=== PATIENT | male | born 1940 | race Caucasian/White ===

== ENCOUNTER 2018-02-22 12:50 | Emergency (ER) | payer MEDICARE, OTHER ==
[2018-02-22] MEDS ORDERED: FENTANYL CITRATE INJ/PF 100 MCG/2 ML AMPUL IV ONE (13:41)
[2018-02-22] MEDS ORDERED: ONDANSETRON HCL INJ/PF 4 MG/2 ML SDV IV ONE (13:41)
--- NOTE | 2018-02-22 13:42 | ER Document Report ---
ED Medical Screen (RME) - General Chief Complaint: Possible Kidney Stone Stated Complaint: FLANK PAIN Time Seen by Provider: 02/22/18 13:33 Mode of Arrival: Ambulatory Information source: Patient Notes: 77-year-old male presents emergency department complaints of left flank pain been present for the last 3 days. Patient describes the pain as a constant dull aching sensation. He states that intermittently he will have a sharp and stabbing sensation. He does have a history of kidney stones. He states that he had to have lithotripsy done in the past. His last kidney stone was 8 years ago. Patient states that he has also had similar pain when he had a perforation of his colon. Having associated nausea. I have greeted and performed a rapid initial assessment of this patient. A comprehensive ED assessment and evaluation of the patient, analysis of test results and completion of the medical decision making process will be conducted by additional ED providers. PHYSICAL EXAMINATION: GENERAL: Well-appearing, well-nourished and in no acute distress. HEAD: Atraumatic, normocephalic. EYES: Pupils equal round extraocular movements intact, conjunctiva are normal. ENT: Nares patent NECK: Normal range of motion LUNGS: No respiratory distress Musculoskeletal: Normal range of motion NEUROLOGICAL: Normal speech, normal gait. PSYCH: Normal mood, normal affect. SKIN: Warm, Dry, normal turgor, no rashes or lesions noted. TRAVEL OUTSIDE OF THE [place] IN LAST 30 DAYS: No - Related Data Allergies/Adverse Reactions: amiodarone Adverse Reaction (Verified 02/22/18 12:51) Past Medical History - Social History Chew tobacco use (# tins/day): No Frequency of alcohol use: Occasional Drug Abuse: None Renal/ Medical History: Denies: Hx Peritoneal Dialysis Physical Exam - Vital signs Vitals: Temp Pulse Resp BP Pulse Ox 98.5 F 62 18 145/76 H 96 02/22/18 13:00 02/22/18 13:00 02/22/18 13:00 02/22/18 13:00 02/22/18 13:00 Course - Vital Signs Vital signs: Temp Pulse Resp BP Pulse Ox 98.5 F 62 16 145/76 H 96 02/22/18 13:00 02/22/18 13:00 02/22/18 13:32 02/22/18 13:00 02/22/18 13:00
[2018-02-22 15:03] LABS: ABSOLUTE LYMPHOCYTES (AUTO) 0.9 10^3/uL (0.5-4.7); ABSOLUTE MONOCYTES (AUTO) 0.5 10^3/uL (0.1-1.4); ABSOLUTE NEUT (AUTO) 3.2 10^3/uL (1.7-8.2); BASOPHILS % (AUTO) 0.9 % (0-2); EOSINOPHILS % (AUTO) 0.8 % (0-6); HEMATOCRIT 38.7 % (37.9-51.0); HEMOGLOBIN 13.5 g/dL (13.5-17.0); LYMPHOCYTES % (AUTO) 19.9 % (13-45); MEAN CORPUSCULAR HEMOGLOBIN 33.2 pg (27.0-33.4); MEAN CORPUSCULAR HGB CONC 34.9 g/dL (32.0-36.0); MEAN CORPUSCULAR VOLUME 95 fl (80-97); PLATELET COUNT 188 10^3/uL (150-450); RED BLOOD COUNT 4.07 10^6/uL (4.35-5.55); RED CELL DISTRIBUTION WIDTH 14.6 % (11.5-14.0); SEGMENTED NEUTROPHILS % (AUTO) 68.4 % (42-78); TOTAL CELLS COUNTED % (AUTO) 100 %; WHITE BLOOD COUNT 4.7 10^3/uL (4.0-10.5)
[2018-02-22 15:13] LABS: APPEARANCE,URINE SLIGHTLY-CLOUDY; BILIRUBIN,URINE NEGATIVE (NEGATIVE); COLOR,URINE YELLOW; GLUCOSE, URINE NEGATIVE (NEGATIVE); KETONES,URINE NEGATIVE (NEGATIVE); LEUKOCYTE ESTERASE,URINE NEGATIVE (NEGATIVE); NITRITE,URINE NEGATIVE (NEGATIVE); PROTEIN,URINE NEGATIVE (NEGATIVE); URINE SPECIFIC GRAVITY 1.025
[2018-02-22 16:38] LABS: ALANINE AMINOTRANSFERASE 24 U/L (21-72); ALBUMIN 4.5 g/dL (3.5-5.0); ALKALINE PHOSPHATASE 57 U/L (38-126); ANION GAP 14 (5-19); ASPARTATE AMINO TRANSFERASE 24 U/L (17-59); BILIRUBIN,DIRECT 0.2 mg/dL (0.0-0.4); BILIRUBIN,TOTAL 0.5 mg/dL (0.2-1.3); BLOOD UREA NITROGEN 19 mg/dL (7-20); CALCIUM 9.3 mg/dL (8.4-10.2); CARBON DIOXIDE 26 mmol/L (22-30); CHLORIDE 104 mmol/L (98-107); GLUCOSE 102 mg/dL (75-110); POTASSIUM 3.7 mmol/L (3.6-5.0); SODIUM 144.1 mmol/L (137-145); TOTAL PROTEIN 7.4 g/dL (6.3-8.2)
[2018-02-22 17:06] VITALS: BP 157/86
--- NOTE | 2018-02-22 17:09 | RADIOLOGY REPORT (SQ) ---
EXAM DESCRIPTION: CT ABD/PELVIS WITH IV ONLY COMPLETED DATE/TIME: 02/22/2018 4:57 pm REASON FOR STUDY: L flank pain COMPARISON: None. TECHNIQUE: CT scan of the abdomen and pelvis performed using helical scanning technique with dynamic intravenous contrast injection. No oral contrast. Images reviewed with lung, soft tissue, and bone windows. Reconstructed coronal and sagittal MPR images reviewed. Delayed images for evaluation of the urinary system also acquired. All images stored on PACS. All CT scanners at this facility use dose modulation, iterative reconstruction, and/or weight based d osing when appropriate to reduce radiation dose to as low as reasonably achievable (ALARA). [facility]: Dose Right [facility]: CareDose [facility]: Dose Right [facility]: Teradose 4D [facility]: [employer] CONTRAST TYPE AND DOSE: contrast/concentration: Isovue 350.00 mg/ml; Total Contrast Delivered: 100.0 ml; Total Saline Delivered: 72.0 ml RENAL FUNCTION: BUN 19 creatinine 1.12. RADIATION DOSE: CT Rad equipment meets quality standard of care and radiation dose reduction techniq ues were employed. CTDIvol: 17.7 - 19.7 mGy. DLP: 2074 mGy-cm.. LIMITATIONS: None. FINDINGS: LOWER CHEST: No significant findings. No nodules or infiltrates. LIVER: Normal size. No masses. No dilated ducts. SPLEEN: Normal size. No focal lesions. PANCREAS: No masses. No significant calcifications. No adjacent inflammation or peripancreatic fluid collections. Pancreatic duct not dilated. GALLBLADDER: No identified stones by CT criteria. No inflammatory changes to suggest cholecystitis. ADRENAL GLANDS: No significant masses or asymmetry. RIGHT KIDNEY AND URETER: No solid masses. No significant calcifications. No hydronephrosis or hyd roureter. LEFT KIDNEY AND URETER: No solid masses. No significant calcifications. No hydronephrosis or hydr oureter. AORTA AND VESSELS: No aneurysm. No dissection. Renal arteries, SMA, celiac without stenosis. RETROPERITONEUM: No retroperitoneal adenopathy, hemorrhage or masses. BOWEL AND PERITONEAL CAVITY: Large hiatal hernia. Fairly extensive colonic diverticulosis. No taniya s or inflammatory changes. No free fluid or peritoneal masses. APPENDIX: Normal. PELVIS: No mass. No free fluid. Normal bladder. ABDOMINAL WALL: No masses. No hernias. BONES: No significant or acute findings. OTHER: No other significant finding. IMPRESSION: 1. FAIRLY EXTENSIVE COLONIC DIVERTICULOSIS. NO CT FINDINGS OF DIVERTICULITIS. 2. LARGE HIATAL HERNIA. 3. NO OTHER SIGNIFICANT OR ACUTE FINDING IN THE ABDOMEN OR PELVIS ON CT SCAN WITH IV CONTRAST. TECHNICAL DOCUMENTATION: JOB ID: [id number] Quality ID # [id number]: Final reports with documentation of one or more dose reduction techniques (e.g., Au tomated exposure control, adjustment of the mA and/or kV according to patient size, use of iterative reconstruction technique) 2010 [employer]- All Rights Reserved Reading location - IP/workstation name: [email or web address]
--- NOTE | 2018-02-22 17:57 | ER Document Report ---
ED General - General Chief Complaint: Possible Kidney Stone Stated Complaint: FLANK PAIN Time Seen by Provider: 02/22/18 13:33 Mode of Arrival: Ambulatory TRAVEL OUTSIDE OF THE [place] IN LAST 30 DAYS: No - HPI Patient complains to provider of: Flank pain possible kidney stone Notes: Patient coming in for the above-stated symptoms. Patient was seen in the triage area by her provider whose note is below 77-year-old male presents emergency department complaints of left flank pain been present for the last 3 days. Patient describes the pain as a constant dull aching sensation. He states that intermittently he will have a sharp and stabbing sensation. He does have a history of kidney stones. He states that he had to have lithotripsy done in the past. His last kidney stone was 8 years ago. Patient states that he has also had similar pain when he had a perforation of his colon. Having associated nausea. Patient upon my evaluation is resting comfortably. Patient denies any fever chills states slight nausea no vomiting otherwise feeling much better after receiving treatments patient denies any recent antibiotics or recent travel. - Related Data Allergies/Adverse Reactions: amiodarone Adverse Reaction (Verified 02/22/18 12:51) Past Medical History - General Information source: Patient - Social History Smoking Status: Never Smoker Chew tobacco use (# tins/day): No Frequency of alcohol use: Occasional Drug Abuse: None Family History: Reviewed & Not Pertinent Patient has suicidal ideation: No Patient has homicidal ideation: No Renal/ Medical History: Denies: Hx Peritoneal Dialysis Review of Systems - Review of Systems Constitutional: No symptoms reported EENT: No symptoms reported Cardiovascular: No symptoms reported Respiratory: No symptoms reported Gastrointestinal: Abdominal pain Genitourinary: No symptoms reported Male Genitourinary: No symptoms reported Musculoskeletal: No symptoms reported Skin: No symptoms reported Hematologic/Lymphatic: No symptoms reported Neurological/Psychological: No symptoms reported -: Yes All other systems reviewed and negative Physical Exam - Vital signs Vitals: Temp Pulse Resp BP Pulse Ox 98.5 F 62 18 145/76 H 96 02/22/18 13:00 02/22/18 13:00 02/22/18 13:00 02/22/18 13:00 02/22/18 13:00 Interpretation: Normal - General General appearance: Appears well, Alert - HEENT Head: Normocephalic, Atraumatic Eyes: Normal Pupils: PERRL - Respiratory Respiratory status: No respiratory distress Chest status: Nontender Breath sounds: Normal Chest palpation: Normal - Cardiovascular Rhythm: Regular Heart sounds: Normal auscultation Murmur: No - Abdominal Inspection: Normal Distension: No distension Bowel sounds: Normal Tenderness: Nontender Organomegaly: No organomegaly - Back Back: Normal, Nontender - Extremities General upper extremity: Normal inspection, Nontender, Normal color, Normal ROM , Normal temperature General lower extremity: Normal inspection, Nontender, Normal color, Normal ROM , Normal temperature, Normal weight bearing. No: Rex's sign - Neurological Neuro grossly intact: Yes Cognition: Normal Orientation: AAOx4 Mary Coma Scale Eye Opening: Spontaneous Mary Coma Scale Verbal: Oriented Mary Coma Scale Motor: Obeys Commands Mary Coma Scale Total: 15 Speech: Normal Motor strength normal: LUE, RUE, LLE, RLE Sensory: Normal - Psychological Associated symptoms: Normal affect, Normal mood - Skin Skin Temperature: Warm Skin Moisture: Dry Skin Color: Normal Course - Re-evaluation Re-evalutation: 02/22/18 23:47 The patient presents with flank pain without signs of peritonitis or other life- threatening or serious etiology. The patient appears stable for discharge and has been instructed to return immediately if the symptoms worsen in any way, or in 8-12hr if not improved for re-evaluation. The patient has been instructed to return if the symptoms worsen or change in any way. Unclear etiology for the patient's flank pain could be still ureteral spasm from my possibly earlier passed ston. Patient otherwise agrees with discharge home follow-up primary care physician. - Vital Signs Vital signs: Temp Pulse Resp BP Pulse Ox 97.6 F 61 16 157/86 H 97 02/22/18 17:04 02/22/18 17:04 02/22/18 17:04 02/22/18 17:04 02/22/18 17:04 - Laboratory Result Diagrams: 02/22/18 14:15 02/22/18 15:55 Laboratory results interpreted by me: 02/22/18 02/22/18 14:15 14:15 RBC 4.07 L RDW 14.6 H Urine Urobilinogen 2.0 H Urine Ascorbic Acid 20 H Discharge - Discharge Clinical Impression: Flank pain Condition: Good Disposition: HOME, SELF-CARE Instructions: Flank Pain ([facility]) Additional Instructions: At this time your laboratory studies CAT scan not show any signs of a kidney stone. No urinary tract infection no signs of infection any lab work. CAT scan does show signs of diffuse diverticulosis. At this time I would recommend Tylenol Motrin for pain control. Please make sure drinking plenty of fluids to stay well-hydrated. Your pain may have been due from passage of the kidney stone. If you develop a fever highly recommend returning to the ER is that this also may be an insidious onset of diverticulitis or inflammation of the pouch is on your colon. Follow-up with your primary care physician return to the ER symptoms worsen
== END 2018-02-22 17:55 | disposition home or self-care (01) ==
LOC: ER 12:50
DX: R10.9 Unspecified abdominal pain (principal); R11.0 Nausea
CPT/HCPCS: 99284; 96374; 96375; 36415; 85025; 80053; 81001; 74177; J3010; J2405

== ENCOUNTER 2018-03-21 16:19 | Emergency (ER) | payer OTHER ==
[2018-03-21 16:26] VITALS: BP 147/76
== END 2018-03-21 18:28 | disposition left against medical advice (07) ==
LOC: ER 16:19
DX: Z53.21 Procedure and treatment not carried out due to patient leaving prior to being seen by health care provider (principal); K62.5 Hemorrhage of anus and rectum

== ENCOUNTER 2018-06-06 09:55 | Day surgery (SDC) | payer OTHER ==
[~2018-06-06 09:55] MED LIST: PROPOFOL INJ 200 MG/20 ML VIAL IV ONE
[2018-06-06] MEDS ORDERED: SIMETHICONE 80 MG TAB.CHEW ONE (11:37)
[2018-06-06] MEDS ORDERED: SIMETHICONE 80 MG TAB.CHEW PO ONE (11:38)
--- NOTE | 2018-06-06 12:15 | Operative Report ---
Operative Report DATE OF SURGERY: 06/06/18 Operative Report: The risks, benefits and alternatives of the procedure including the risk of bleeding, perforation requiring surgery have been explained to the patient in detail and informed consent has been obtained. The patient is placed in a left, lateral decubital position. Timeout was called. Propofol medication is administered. Rectal examination is done which did not reveal any masses, tears or fissures. An Olympus videoscope was introduced into the patient's rectum. The scope was then carefully advanced all the way to the cecum. The cecum was identified by the usual anatomical landmarks including the ileocecal valve as well as the appendiceal office. Photodocumentation is obtained. Scope was then sequentially pulled back via the various segments of the colon including the ascending colon, hepatic flexure, transverse colon, splenic flexure, descending colon and finally into the rectosigmoid portions of the colon. Retroflexion maneuver was performed. The risks benefits and alternatives of the procedure explained to the patient in detail and informed consent is obtained.A GIF Olympus video scope was inserted into the patient's mouth and hypopharynx, the esophagus is identified intubated and insufflated ,the scope was then advanced through the esophagus stomach and duodenum, retroflexion maneuver is done, the esophagus stomach and first and second portions of the duodenum examined. PREOPERATIVE DIAGNOSIS: Iron deficiency anemia. Rectal bleeding although patient is on Xarelto POSTOPERATIVE DIAGNOSIS: Internal hemorrhoids. There is significant diverticulosis throughout the colon. No evidence of diverticulitis. No evidence of GI bleeding. Right side colon Inflammation status post biopsy. Paraesophageal hernia. Gastritis status post biopsy rule out Helicobacter pylori OPERATION: Colonoscopy with biopsy. EGD with biopsy SURGEON: SHAYY GAMINO ANESTHESIA: LMAC TISSUE REMOVED OR ALTERED: As noted above. COMPLICATIONS: None. ESTIMATED BLOOD LOSS: None. INTRAOPERATIVE FINDINGS: As noted above. PROCEDURE: Patient tolerated the procedure well. No immediate postprocedure complications are noted. Patient discharged in good condition. Discharge date 06/06/2018. Discharge diet: Regular. Discharge activity: Regular. 2-3-week follow-up to discuss findings. Patient is instructed call the office or proceed to the emergency room should there be any further proximal questions. I will wait on the pathology. No evidence of GI bleeding is noted.
[2018-06-06 12:32] VITALS: BP 186/90
== END 2018-06-06 12:35 | disposition home or self-care (01) ==
LOC: END 09:55
PROVIDERS: ATTEND Internal Medicine Gastroenterology
DX: D50.0 Iron deficiency anemia secondary to blood loss (chronic) (principal); K62.5 Hemorrhage of anus and rectum; K64.8 Other hemorrhoids; K57.30 Diverticulosis of large intestine without perforation or abscess without bleeding; K52.9 Noninfective gastroenteritis and colitis, unspecified; K44.9 Diaphragmatic hernia without obstruction or gangrene; K29.50 Unspecified chronic gastritis without bleeding
CPT/HCPCS: 43239; 45380; 88342 ×2; 88305 ×2; J2704

== ENCOUNTER 2018-07-18 17:08 | Emergency (ER) | payer OTHER, MEDICARE ==
--- NOTE | 2018-07-18 18:19 | RADIOLOGY REPORT (SQ) ---
EXAM DESCRIPTION: FOREARM RIGHT COMPLETED DATE/TIME: 07/18/2018 6:12 pm REASON FOR STUDY: Hit arm against trailer Wednesday. Bruised. Pain COMPARISON: None. NUMBER OF VIEWS: Two views. TECHNIQUE: Two radiographic images acquired of the right forearm, including elbow and wrist in at le ast one projection. LIMITATIONS: None. FINDINGS: MINERALIZATION: Normal. BONES: No acute fracture. No worrisome bone lesions. SOFT TISSUES: No obvious swelling or foreign body. OTHER: No other significant finding. IMPRESSION: NEGATIVE STUDY OF THE RIGHT FOREARM. NO RADIOGRAPHIC EVIDENCE OF ACUTE INJURY. TECHNICAL DOCUMENTATION: JOB ID: [id number] [employer]- All Rights Reserved Reading location - IP/workstation name: [email or web address]
--- NOTE | 2018-07-18 19:45 | ER Document Report ---
ED Extremity Problem, Upper - General Chief Complaint: Arm Problem Stated Complaint: POSSIBLE BLOOD CLOT Time Seen by Provider: 07/18/18 19:30 Primary Care Provider: CALEB NEVILLE [Primary Care Provider] - Follow up as needed Notes: Pleasant 77-year-old male presents to the the emergency department for chief complaint of blood clot in right forearm. He states he was picking up a trailer and a hitch landed on his arm about 4 days ago. He had bruising on the anterior part of his right forearm which is not concerned about the small amount which he thinks is an internal blood clot. He states it is been present for 4 days and is not changed size. He states it is painless. He denies any fever, chills, nausea, vomiting, shortness of breath or chest pain, abdominal pain TRAVEL OUTSIDE OF THE [place] IN LAST 30 DAYS: No - Related Data Allergies/Adverse Reactions: lisinopril Allergy (Verified 06/06/18 10:39) RASH amiodarone Adverse Reaction (Verified 06/06/18 10:39) ITCHY Past Medical History - Social History Smoking Status: Unknown if Ever Smoked Family History: Reviewed & Not Pertinent Patient has suicidal ideation: No Patient has homicidal ideation: No - Past Medical History Cardiac Medical History: Reports: Hx Atrial Fibrillation - ablasion, Hx Coronary Artery Disease, Hx Hypertension Denies: Hx Heart Attack Pulmonary Medical History: Denies: Hx Asthma, Hx Bronchitis, Hx COPD, Hx Pneumonia Neurological Medical History: Denies: Hx Cerebrovascular Accident, Hx Seizures Renal/ Medical History: Denies: Hx Peritoneal Dialysis Musculoskeletal Medical History: Denies Hx Arthritis Past Surgical History: Reports: Hx Cardiac Surgery - ablasion, Hx Orthopedic Surgery - R knee - Immunizations Hx Diphtheria, Pertussis, Tetanus Vaccination: Yes Physical Exam - Vital signs Vitals: Temp Pulse Resp BP Pulse Ox 98.7 F 64 16 153/78 H 97 07/18/18 17:43 07/18/18 17:43 07/18/18 17:43 07/18/18 17:43 07/18/18 17:43 - Notes Notes: PHYSICAL EXAMINATION: Reviewed vital signs and charting by RN GENERAL: Alert, interacts well. No acute distress. HEAD: Normocephalic, atraumatic. EYES: Pupils equal and round. Extraocular movements intact. LUNGS: Clear to auscultation bilaterally, no wheezes, rales, or rhonchi. No respiratory distress. HEART: Regular rate and rhythm. No murmur ABDOMEN: soft, non-tender. Non-distended. Bowel sounds present. no McBurney's point tenderness, no Kent sign. EXTREMITIES: Moves all 4 extremities spontaneously. No edema, No cyanosis. Normal distal neurovascular exam BACK: No CVAT NEUROLOGIC: Oriented and appropriate. Normal speech. PSYCH: Normal affect, normal mood. SKIN: Warm, dry, normal turgor. Ecchymosis right anterior forearm, small mobile mass in subcutaneous layer consistent with a lipoma Course - Re-evaluation Re-evalutation: 07/18/18 19:45 Overall well-appearing on anticoagulation. Patient is concerned he has a blood clot. I explained to him that the risk is very low in the location and he is also anticoagulated. Injury is most consistent with either a lipoma secondary to trauma or resorption of a hematoma. There is no pain out of proportion to movement of the forearm so I do not compartments were not tight. - Vital Signs Vital signs: Temp Pulse Resp BP Pulse Ox 98.7 F 64 16 153/78 H 97 07/18/18 17:43 07/18/18 17:43 07/18/18 17:43 07/18/18 17:43 07/18/18 17:43 Discharge - Discharge Clinical Impression: Bruising Condition: Good Disposition: HOME, SELF-CARE Additional Instructions: You are seen in the emergency department this afternoon for what is most likely resorption of a bruise. Because you are on anticoagulation you may have developed a small hematoma under the skin and the blood cells and pigment started to resorb into the connective tissue which could potentially cause a mass. Also, the other potential reason for this mass is what is called a lipoma. It is a benign tumor that is fatty in the subcutaneous layer of your skin. These can be caused by trauma. Both of these conditions are benign and should cause you no problems in the future. If you start to develop fever, redness around the site, red streaks running up your arm, severe pain out of proportion to movement Referrals: [facility] [Primary Care Provider] - Follow up as needed
[2018-07-18 20:13] VITALS: BP 145/85
== END 2018-07-18 20:13 | disposition home or self-care (01) ==
LOC: ER 17:08
DX: S50.11XA Contusion of right forearm, initial encounter (principal); W22.09XA Striking against other stationary object, initial encounter; I48.91 Unspecified atrial fibrillation; I25.10 Atherosclerotic heart disease of native coronary artery without angina pectoris; I10 Essential (primary) hypertension
CPT/HCPCS: 99283

== ENCOUNTER → 2019-04-24 | Outpatient (CLI) | payer OTHER ==
--- NOTE | 2019-04-24 13:17 | RADIOLOGY REPORT (SQ) ---
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 TECHNIQUE: Sagittal and Axial imaging includes T1, T2, STIR and gradient echo sequences. Coronal T2/ HASTE imaging. LIMITATIONS: None. FINDINGS: VISUALIZED UPPER ABDOMEN: Limited evaluation. No acute or suspicious findings suggested. SEGMENTATION: No transitional anatomy. The lowest well-developed disc space is labeled L5-S1. ALIGNMENT: There is mild anterolisthesis of L3 on L4. VERTEBRAE: Intact. BONE MARROW: Normal. No marrow replacement or reactive changes. DISC SIGNAL: Decreased T2 signal, particularly at L4-5 and L5-S1. There is narrowing of these disc s paces. POSTERIOR ELEMENTS: Generally intact. No pars defect evident. HARDWARE: None in the spine. CORD AND CONUS: Normal in size and signal intensity. Conus at the T12 level. SOFT TISSUES: No aortic aneurysm seen. No bulky retroperitoneal adenopathy or mass. No paraspinal mas s or fluid. L1-L2: No significant spinal stenosis or exit foraminal stenosis. L2-L3: Mild concentric disc bulging. Facet and ligament hypertrophy. These findings result in centr al canal stenosis. No foraminal stenosis. L3-L4: Mild concentric disc bulging and facet and ligament hypertrophy result in central canal stenos is. No significant foraminal stenosis. L4-L5: Circumferential disc bulging is slightly asymmetrical. There is mild posterior displacement o f the traversing nerve root on the right. The bulging disc on the right side appears to contact the exiting nerve root outside of the neural foramen. L5-S1: No significant spinal stenosis or exit foraminal stenosis. LOWER THORACIC: Incompletely imaged. No stenosis seen. SACRUM: Visualized upper sacrum intact. OTHER: No other significant findings. IMPRESSION: Disc bulges at L2-3, L3-4, and L4-5. 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 There is posterior displacement of the traversing nerve root on the right at L4-5. The bulging disc on the right at L4-5 appears to contact the exiting nerve root outside of the neural foramen. TECHNICAL DOCUMENTATION: JOB ID: [id number]- All Rights Reserved Reading location - IP/workstation name: [email or web address]
== END ==
LOC: RAD 12:05
PROVIDERS: ATTEND Internal Medicine
DX: M51.16 Intervertebral disc disorders with radiculopathy, lumbar region (principal)
CPT/HCPCS: 72148